=== PATIENT | male | born 1950 | race Caucasian/White ===

== ENCOUNTER → 2019-10-13 | Outpatient (CLI) | payer OTHER ==
[~2019-10-13] MED LIST: CENTRUM SILVER1 EAC2 PO; CITRUCEL CAPLET1 TA1 PO; FISH OIL 1,0001 EAC5; LUTEIN 15 MG S1 EACH PO; MULTIVITAMINS; NORCO 5-325 TA1 EACH PO; VISION VITAMIN1 EACH
== END ==
LOC: SJCVCIMAG 09:27
DX: Z45.018 Encounter for adjustment and management of other part of cardiac pacemaker (principal); I34.0 Nonrheumatic mitral (valve) insufficiency; I11.9 Hypertensive heart disease without heart failure; R00.1 Bradycardia, unspecified; R94.31 Abnormal electrocardiogram [ECG] [EKG]; I42.9 Cardiomyopathy, unspecified; E78.5 Hyperlipidemia, unspecified; I44.2 Atrioventricular block, complete; C61 Malignant neoplasm of prostate; E78.00 Pure hypercholesterolemia, unspecified; F17.210 Nicotine dependence, cigarettes, uncomplicated; Z79.899 Other long term (current) drug therapy; Z82.49 Family history of ischemic heart disease and other diseases of the circulatory system

== ENCOUNTER → 2020-05-03 | Outpatient (CLI) | payer OTHER | LOC: SJCVC 13:48 | PROVIDERS: ATTEND Internal Medicine | DX: Z45.018 Encounter for adjustment and management of other part of cardiac pacemaker (principal); R94.31 Abnormal electrocardiogram [ECG] [EKG]; I42.9 Cardiomyopathy, unspecified; I44.30 Unspecified atrioventricular block; E78.5 Hyperlipidemia, unspecified; I44.2 Atrioventricular block, complete; C61 Malignant neoplasm of prostate; I10 Essential (primary) hypertension; F17.210 Nicotine dependence, cigarettes, uncomplicated; Z79.899 Other long term (current) drug therapy ==

== ENCOUNTER → 2020-11-03 | Outpatient (CLI) | payer OTHER | LOC: SJCVCIMAG 10-26 09:02 | PROVIDERS: ATTEND Internal Medicine | DX: I07.1 Rheumatic tricuspid insufficiency (principal); I42.9 Cardiomyopathy, unspecified; I44.30 Unspecified atrioventricular block; E78.5 Hyperlipidemia, unspecified; I44.2 Atrioventricular block, complete; C61 Malignant neoplasm of prostate; I11.9 Hypertensive heart disease without heart failure; R06.02 Shortness of breath; E78.00 Pure hypercholesterolemia, unspecified; F17.210 Nicotine dependence, cigarettes, uncomplicated; Z95.0 Presence of cardiac pacemaker; Z98.890 Other specified postprocedural states; Z79.899 Other long term (current) drug therapy; Z82.49 Family history of ischemic heart disease and other diseases of the circulatory system ==

== ENCOUNTER → 2020-11-13 | Outpatient (CLI) | payer OTHER | LOC: SJCVCIMAG 08:04 | PROVIDERS: ATTEND Internal Medicine | DX: I49.3 Ventricular premature depolarization (principal); R42 Dizziness and giddiness; R06.00 Dyspnea, unspecified; E78.5 Hyperlipidemia, unspecified; I10 Essential (primary) hypertension; Z87.891 Personal history of nicotine dependence; Z79.899 Other long term (current) drug therapy ==

== ENCOUNTER → 2020-11-27 | Outpatient (CLI) | payer OTHER | LOC: LAB 08:46 | PROVIDERS: ATTEND Internal Medicine | DX: Z01.812 Encounter for preprocedural laboratory examination (principal); Z20.822 Contact with and (suspected) exposure to COVID-19 ==

== ENCOUNTER → 2020-11-28 | Outpatient (CLI) | payer OTHER ==
--- NOTE | ~2020-11-28 | PFR/MVV ---
[facility] [place] [place] [address] PULMONARY FUNCTION MVV/REPORT Name: DUYMASON Asia Room #: [facility]#: [id number] Admission: 11/28/20 Attend Phys: Raúl Wagner MD, [facility] Discharge: Date of : 46 Report #: [id number] THIS REPORT FOR: //name// >> SPIROMETRY: (BTPS) Height: in cm Weight: lbs kg Exam Date: PRE-RX POST-RX PRED BEST %PRED BEST %PRED %CHG FVC LITERS . . . . . . FEV1 LITERS . . . . . . FEV1/FVC % . . . . . . DPR99-77% L/Sec . . . . . . PEF L/SEC . . . . . . FEF50/FIF50 UNITLESS . . . . . . MVV L/Min . . . f 1/Min . . . >> LUNG VOLUMES: (BTPS) PRE-RX POST-RX PRED AVG %PRED AVG %PRED %CHG VC Liters . . . . . . TLC Liters . . . . . . RV Liters . . . . . . RV/TLC % . . . . . . FRC PL Liters . . . . . . FRC N2 Liters . . . . . . ERV Liters . . . . . . IC Liters . . . . . . >> DIFFUSION: DLCO ml/Min/mmHg . . . . . . DL Yessy ml/Min/mmHg . . . . . . DLCO/VA ml/Min/mmHg . . . . . . VA Liters . . . . . . COMMENTS: COMMENTS: >> RESISTANCE: [facility] [address] [place] [address] PULMONARY FUNCTION MVV/REPORT Name: DUYMASON Asia Room #: [facility]#: [id number] Admission: 11/28/20 Attend Phys: Raúl Wagner MD, [facility] Discharge: Date of : 46 Report #: [id number] PRE-RX PRED AVG %PRED Raw Total cmH20/L/Sec . . . Raw Insp cmH20/L/Sec . . . Raw Exp cmH20/L/Sec . . . Raw cmH20/L/Sec . . . Gaw L/Sec/cmH20 . . . sRaw cmH20 Sec . . . sGaw l/cmH20 Sec . . . Vtq Liters . . . # = OUTSIDE 95% CONFIDENCE INTERVAL CALIBRATION: PRED: 3.00 ACTUAL: EXP 3.01 INSP 3.02 [facility] N-1804-4 >> INTERPRETATION/IMPRESSION: PULMONARY FUNCTION STUDIES SPIROMETRY: FEV1 is 2.19 liters (75% predicted). FVC is 3.93 liters (90%), FEV1/FVC ratio is 56%. Post-bronchodilator therapy with no significant response. Total lung capacity is 10.42 liters (160%). RV is 6.32 liters (247%). DLCO is 88%. IMPRESSION: Pulmonary function studies are consistent with a mild obstructive airflow defect with no significant response to bronchodilator therapy. There is moderate hyperinflation and severe air trapping. Diffusing capacity is normal. By: Gutierrez Caldera MD /nt
== END ==
LOC: PUL 11-27 11:21
PROVIDERS: ATTEND Internal Medicine
DX: R06.02 Shortness of breath (principal)

== ENCOUNTER → 2020-12-26 | Outpatient (CLI) | payer OTHER | LOC: CAT 08:42 | PROVIDERS: ATTEND Internal Medicine | DX: J43.2 Centrilobular emphysema (principal); J98.4 Other disorders of lung; J84.10 Pulmonary fibrosis, unspecified; I70.0 Atherosclerosis of aorta; Z72.0 Tobacco use ==

== ENCOUNTER → 2021-04-16 | Outpatient (CLI) | payer OTHER | LOC: SJCVC 10:58 | PROVIDERS: ATTEND Internal Medicine | DX: R94.31 Abnormal electrocardiogram [ECG] [EKG] (principal); I42.9 Cardiomyopathy, unspecified; I44.30 Unspecified atrioventricular block; I10 Essential (primary) hypertension; E78.5 Hyperlipidemia, unspecified; C61 Malignant neoplasm of prostate; F17.210 Nicotine dependence, cigarettes, uncomplicated; Z95.0 Presence of cardiac pacemaker; Z98.890 Other specified postprocedural states; Z79.899 Other long term (current) drug therapy; Z82.49 Family history of ischemic heart disease and other diseases of the circulatory system ==

== ENCOUNTER → 2021-08-01 | Outpatient (CLI) | payer OTHER | LOC: SJCVC 10:50 | PROVIDERS: ATTEND Internal Medicine | DX: R94.31 Abnormal electrocardiogram [ECG] [EKG] (principal); I48.3 Typical atrial flutter; I44.2 Atrioventricular block, complete; I42.9 Cardiomyopathy, unspecified; J44.9 Chronic obstructive pulmonary disease, unspecified; E78.00 Pure hypercholesterolemia, unspecified; Z82.49 Family history of ischemic heart disease and other diseases of the circulatory system; F17.210 Nicotine dependence, cigarettes, uncomplicated; Z72.89 Other problems related to lifestyle; Z95.0 Presence of cardiac pacemaker; Z79.899 Other long term (current) drug therapy ==

== ENCOUNTER → 2021-08-15 | Outpatient (CLI) | payer OTHER ==
[~2021-08-15] VITALS: Ht 177.8 cm; Wt 89.4 kg
[~2021-08-15] MED LIST changes: +CARVEDILOL12.5 MG PO; +HYDROCHLOROTH12.5 M2 PO; +OLMESARTAN MEDO40 MG PO; +WELLBUTRIN SR150 M1 PO; +XARELTO20 MG PO
[2021-08-15 07:25] LABS: ABSOLUTE NEUTROPHILS 2.3 thou/uL (1.4-8.2); BASOPHILS 0.9 % (0.0-2.0); EOSINOPHILS 2.7 % (0.0-3.0); HEMATOCRIT 46.4 % (42.0-52.0); HEMOGLOBIN 15.9 gm/dL (14.0-18.0); LYMPHOCYTES 29.2 % (24.0-44.0); MCH 35.3 pg (26.0-34.0); MCHC 34.2 g/dL (28.0-37.0); MONOCYTES 13.6 % (1.0-8.0); PLATELET COUNT 145 thou/uL (150-400); POLYS 53.6 % (36.0-66.0); RBC 4.51 mil/uL (4.50-6.00); RDW 13.2 % (10.5-14.5); WBC 4.2 thou/uL (4.0-11.0)
[2021-08-15 07:33] VITALS: BP 121/80
[2021-08-15 07:36] LABS: APTT 25.9 Seconds (24.5-32.8); INR 0.95; PROTIME 10.4 Seconds (10.5-12.1)
[2021-08-15 08:15] LABS: ALBUMIN 3.3 g/dL (3.4-5.0); CALCIUM 8.6 mg/dL (8.5-10.1); CREATININE 0.8 mg/dL (0.7-1.3); TOTAL BILIRUBIN 0.4 mg/dL (0.2-1.0); TOTAL PROTEIN 6.4 g/dL (6.4-8.2)
[2021-08-15 08:20] LABS: POTASSIUM 3.6 mmol/L (3.5-5.1)
--- NOTE | 2021-08-15 08:57 | TEE ---
[address] [address] TRANSESOPHAGEAL ECHOCARDIOGRAM Name: MASON GORDILLO Room #: [facility]#: [id number] Admission: Attend Phys: Wilfredo Fowler MD Discharge: Date of : 46 Report #: [id number] THIS REPORT FOR: cc: Maik Garnett MD, John H. MD Lundgren,Raúl Parra MD [facility] ~ APPROVED REPORT Study performed: 08/15/2021 07:55:53 EXAM: Comprehensive 2D, Doppler, and color-flow Echocardiogram Patient Location: Out-Patient Room #: EP Lab Status: routine BSA: 2.07 HR: 68 bpm Rhythm: Atrial Flutter Other Information Study Quality: Good Indications Atrial Fibrillation Pacemaker Echo Enhancing Agent Indication: Rule out Shunt Agent(s) / Amount(s) Used: Agitated Saline 7 cc Procedure After obtaining informed consent, patient underwent transesophageal echo in the EP Lab. Type of Sedation : General Anesthesia Sedation was administered by Nurse. Sedation start time: 809 Case end Time: 819 Transesophageal probe was inserted and advanced into esophagus without difficulty by Raúl Wagner MD. Echo enhancement indication: R/O Septal defect. Echo enhancement agent administered: Agitated Saline The MILES was performed without complications. Throughout the procedure, the blood pressure, pulse oximetry, cardiac [address] [place] [address] TRANSESOPHAGEAL ECHOCARDIOGRAM Name: MASON GORDILLO Room #: [facility]#: [id number] Admission: Attend Phys: Wilfredo Fowler Discharge: Date of : 46 Report #: [id number] rhythm, and rate were monitored. The patient tolerated the procedure without adverse effects. Recovery from conscious sedation was uneventful and vital signs were stable. Left Ventricle The left ventricle is normal size. There is normal LV segmental wall motion. There is normal left ventricular wall thickness. The left ventricular systolic function is at the lower limits of normal. LVEF 50%. Right Ventricle The right ventricle is normal size. The right ventricular systolic function is normal. Pacemaker lead is present in the right ventricle. Atria The left atrium size is normal. No thrombus is visualized in the left atrium or appendage. No shunting by contrast bubble injection The right atrium size is normal. Pacemaker lead is present in the right atrium. Aortic Valve The aortic valve is normal in structure. No aortic regurgitation No aortic valvular stenosis. Mitral Valve The mitral valve is normal in structure. Mild mitral regurgitation. No evidence of mitral valve stenosis. Tricuspid Valve The tricuspid valve is normal in structure. Mild tricuspid regurgitation. Pulmonic Valve The pulmonary valve is normal in structure. There is no pulmonic valvular regurgitation. Great Vessels The aortic root is normal in size. The ascending aorta is normal in size. IVC is normal in size and collapses >50% with inspiration. Pericardium There is no pericardial effusion. Critical Notification [facility] [address] [address] TRANSESOPHAGEAL ECHOCARDIOGRAM Name: BIJAL GORDILLOEL REN Room #: PRE [facility]#: [id number] Admission: Attend Phys: [facility] Discharge: Date of : 46 Report #: [id number] Physician Notified Date: 08/15/2021 <Conclusion> The left ventricular systolic function is at the lower limits of normal. There is normal LV segmental wall motion. LVEF 50%. The left atrium size is normal. No thrombus is visualized in the left atrium or appendage. No shunting by contrast bubble injection The aortic valve is normal in structure. No aortic regurgitation, or stenosis The mitral valve is normal in structure. Mild mitral regurgitation There is no pericardial effusion. Performed in atrial flutter with controlled ventricular response <ELECTRONICALLY SIGNED> By: Raúl Wagner MD, FACC 08/15/2157 6 6 Raúl Wagner MD, FACC /INF
--- NOTE | 2021-08-17 11:22 | P ---
[facility] [place] [address] PROCEDURE REPORT Name: MASON GORDILLO Room #: [facility]#: [id number] Admission: Attend Phys: Wilfredo Fowler MD Discharge: Date of : 46 Report #: [id number] THIS REPORT FOR: cc: Maik Garnett MD, John H. MD Couchonnal, Luis F. MD ~ DATE OF SERVICE: 08/15/2021 PREOPERATIVE DIAGNOSIS: Atrial flutter. POSTOPERATIVE DIAGNOSIS: Atrial flutter. HISTORY: The patient is a 70-year-old with history of heart block, status post pacemaker implantation, with symptomatic atrial flutter, here for ablation. PROCEDURES PERFORMED: 1. Preprocedural pacemaker reprogramming, CPT code 29955. 2. Post-procedural pacemaker reprogramming, CPT code 67757. 3. SVT ablation, CPT code 32092. 4. Left atrial pacing and recording, CPT code 87227. 5. Intracardiac echo, CPT code 66218. 6. A 3D mapping, CPT code 63152. DESCRIPTION OF PROCEDURE: The patient underwent informed consent. He was then brought to the EP laboratory in fasting and nonsedated state. He underwent a MILES showing no evidence of left atrial appendage thrombus. As such, he was then prepped for ablation. Preablation, I reprogrammed his pacemaker to the VOO 60 mode. I then obtained access to the right femoral vein x 3, placing an 8, 9 and 7-Sami short sheaths. Under fluoroscopy, I placed an ICE catheter into the right atrium, which showed evidence of normal right atrial anatomy. Decapolar catheter was placed in the coronary sinus, which was somewhat challenging. It appeared that there was likely a valve under ICE imaging. At baseline, the patient was in atrial flutter with an atrial cycle length of 280 milliseconds, proximal to distal activation along the CS catheter and negative sawtooth flutter waves in the inferior leads consistent with a typical atrial flutter. Ventricular cycle length was 1000 milliseconds, QRS duration 184 milliseconds and was paced. The QT interval was 444 milliseconds. Next, ablation catheter was placed into the right atrium and a 3D geometry and activation map was created, demonstrating that the patient had counterclockwise atrial flutter. As such, ablation catheter was placed into the right atrium via a ramp sheath and ablation was performed at 70 gonzalez and 60 degrees. A continuous drag lesion was created and I felt to the IVC and I still did not have block. During my initial line, the catheter did jump from the proximal to mid isthmus and therefore there was a large ablation gap left. As such, I went into this area and performed ablation and this was where the atrial flutter [address] [address] PROCEDURE REPORT Name: MASON GORDILLO Room #: [facility] Massiel#: [id number] Admission: Attend Phys: Wilfredo Fowler MD Discharge: Date of : 46 Report #: [id number] terminated. Post-ablation, there was evidence of bidirectional block. I did perform additional ablation along this gap as it was harder to get good tissue contact in this location and then post-ablation testing was again performed. Transisthmus conduction time was 160 milliseconds and an activation sequence was consistent with bidirectional block. Post-ablation, there was no evidence of pericardial effusion. I did check his device thresholds. Lead characteristics were stable. The device was programmed back to the DDDR 60 mode and then catheters and sheaths were pulled. Hemostasis was obtained. The patient awoke neurologically and hemodynamically intact. No complications. No significant bleeding. CONCLUSIONS: 1. Successful atrial flutter ablation with bidirectional block. 2. Successful pacemaker pre and post-procedural reprogramming. <ELECTRONICALLY SIGNED> By: Wilfredo Fowler MD 08/17/21 [id number] Wilfredo Fowler MD /nt
== END | disposition home or self-care (01) ==
LOC: CATH 06:30
PROVIDERS: ATTEND Internal Medicine Cardiovascular Disease
DX: I48.92 Unspecified atrial flutter (principal); I42.9 Cardiomyopathy, unspecified; I10 Essential (primary) hypertension; E78.5 Hyperlipidemia, unspecified; J44.9 Chronic obstructive pulmonary disease, unspecified; F17.210 Nicotine dependence, cigarettes, uncomplicated; Z98.890 Other specified postprocedural states; Z79.899 Other long term (current) drug therapy; Z86.73 Personal history of transient ischemic attack (TIA), and cerebral infarction without residual deficits; Z95.0 Presence of cardiac pacemaker; Z85.820 Personal history of malignant melanoma of skin; Z79.01 Long term (current) use of anticoagulants; Z20.822 Contact with and (suspected) exposure to COVID-19
CPT/HCPCS: 62110; 62900; 70005

== ENCOUNTER → 2021-10-29 | Outpatient (CLI) | payer OTHER | LOC: SJCVC 11:32 | PROVIDERS: ATTEND Internal Medicine | DX: R94.31 Abnormal electrocardiogram [ECG] [EKG] (principal); I42.9 Cardiomyopathy, unspecified; I48.92 Unspecified atrial flutter; I10 Essential (primary) hypertension; E78.5 Hyperlipidemia, unspecified; J43.2 Centrilobular emphysema; C61 Malignant neoplasm of prostate; E78.00 Pure hypercholesterolemia, unspecified; F17.210 Nicotine dependence, cigarettes, uncomplicated; Z95.0 Presence of cardiac pacemaker; Z72.89 Other problems related to lifestyle; Z79.899 Other long term (current) drug therapy; Z82.49 Family history of ischemic heart disease and other diseases of the circulatory system ==